=== PATIENT | female | born 1990 ===

== ENCOUNTER 2019-02-23 00:11 | Emergency (ER) | payer OTHER ==
[2019-02-23] MEDS ORDERED: Ampicillin 1 GM in Sodium Chloride 0.9% 100 ML IV ONE (00:14)
[2019-02-23] MEDS ORDERED: Ampicillin 2 GM in Sodium Chloride 0.9% 100 ML IV ONE (00:17)
--- NOTE | 2019-02-23 00:50 | EDM.PDOC ---
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 Patient is 34 weeks . This is her first -she is from [facility] here visiting family. She states that earlier this afternoon she had an increase in urination she thought and she continued to soil her pants throughout the afternoon. She states that it was also sticky in nature. She states that this evening after supper she started having more "cramping" sensation in the lower abdomen and increase in back pain. Just prior to arrival she says that the cramping has become continuous and no relief was noted despite what she could do. She also has an increase in pressure in the vagina. Patient denies any other health concerns. Patient states that her has been relatively normal thus far and she had been attending all of her appointments as scheduled. She had not been told of any increased risks or infectious diseases from her OBGYN. She denies any contractions or leaking prior to today. Onset: Sudden Location: Reports: Abdomen Improves with: Reports: None Worsens with: Reports: None Associated Symptoms: Reports: No Other Symptoms ED ROS GENERAL - Review of Systems Review Of Systems: ROS reveals no pertinent complaints other than HPI. Constitutional: Reports: No Symptoms HEENT: Reports: No Symptoms Respiratory: Reports: No Symptoms Cardiovascular: Reports: No Symptoms Endocrine: Reports: No Symptoms Musculoskeletal: Reports: No Symptoms Skin: Reports: No Symptoms Neurological: Reports: No Symptoms Psychiatric: Reports: No Symptoms Hematologic/Lymphatic: Reports: No Symptoms ED EXAM - Physical Exam Exam: See Below Exam Limited By: No Limitations General Appearance: Alert, WD/WN, No Apparent Distress Eye Exam: Bilateral Eye: EOMI, PERRL Head: Atraumatic, Normocephalic Respiratory/Chest: No Respiratory Distress, Lungs Clear, Normal Breath Sounds, No Accessory Muscle Use, Chest Non-Tender Cardiovascular: Normal Peripheral Pulses, Regular Rate, Rhythm Fundal Height In cm: 34 (Female) Exam: Cervical Dilatation, Enlarged Uterus, Uterine Tenderness, Vaginal Bleeding (blood show noted ), Vaginal Discharge Heart Tones: Present Heart Tones per Min: 124 (second reading prior to disharge 132.) Movement: Active Back Exam: Normal Inspection, Full Range of Motion Extremities: Normal Inspection, Normal Range of Motion, Non-Tender, No Pedal Edema, Normal Capillary Refill Neurological: Alert, Oriented, Normal Gait Psychiatric: Normal Affect, Normal Mood Skin Exam: Warm, Dry, Intact, Normal Color Course - Orders/Labs/Meds Meds: Medications Discontinued Medications Generic Name Dose Route Start Last Admin Trade Name Usama PRN Reason Stop Dose Admin Ampicillin Sodium 1 gm/ Sodium 100 mls @ 200 mls/hr 02/23/19 00:14 Chloride IV 02/23/19 00:43 ONETIME ONE Ampicillin Sodium 2 gm/ Sodium 100 mls @ 200 mls/hr 02/23/19 00:17 Chloride IV 02/23/19 00:46 ONETIME ONE Departure - Departure Time of Disposition: 00:22 Disposition: DC/Tfer to [facility] 02 Clinical Impression: Active labor Qualifiers: Fetus number: single or unspecified fetus Qualified Code(s): O60.10X0 - labor with delivery, unspecified trimester, not applicable or unspecified - Discharge Information *PRESCRIPTION DRUG MONITORING PROGRAM REVIEWED*: Not Applicable *COPY OF PRESCRIPTION DRUG MONITORING REPORT IN PATIENT HANNA: Not Applicable Referrals: PCP,Not In Area [Primary Care Provider] - Forms: ED Department Discharge, Interfacility Transfer EMTALA - Problem List Review Problem List Initiated/Reviewed/Updated: Yes - Assessment/Plan Assessment:: 1. contraction 2. Active labor Plan: 1. Contractions every 1.5-2 minutes apart. head engaged 2+,3+. Vertex presentation LUIS ENRIQUE. dilation 9-10. 2. Contact made with [facility]. Dr. Truong recommends ampicillin 2gm IV now and transport. She did recommend calling [facility] and transporting there if possible for they are the closer facility capable of delivering in a controlled setting. Called [facility] and requested to be connected with the OB non clinical advisor. When giving report was unaware report was given to OB nursing personnel and no OB provider. [facility] called back a couple minutes later and asked if we needed the phone number for the non clinical advisor provider for they did not have anyone in house and they would need him to accept the transfer. Pt was loaded in the ambulance already. Contacted Dr. Truong back at [facility] who accepted care of the patient. Pt was transferred emergently via [facility]. 3. Pt's vitals remained stable. Contractions remained at 1.5-2 minutes apart with head engaged 2+, 3+. heart tones checked 2 times 124 and 132.
== END 2019-02-23 00:45 | disposition short-term general hospital (02) ==
LOC: VM.ED 00:11
DX: O60.10X0 Preterm labor with preterm delivery, unspecified trimester, not applicable or unspecified (principal); Z3A.34 34 weeks gestation of pregnancy
CPT/HCPCS: 96374; 99285; J0290; J7050